=== PATIENT | male | born 1980 | race Caucasian/White ===

== ENCOUNTER 2017-06-21 16:55 | Emergency (ER) | payer SELFPAY ==
[~2017-06-21] VITALS: Ht 175.3 cm; Wt 91.0 kg
[2017-06-21] MEDS ORDERED: ALBU18HF2 IH (17:11)
[2017-06-21] MEDS ORDERED: ALBUTEROL (0.083%) 2.5MG/3ML NEB HHN STA (17:46)
[2017-06-21] MEDS ORDERED: PREDNISONE 20MG TABLET PO STA (17:46)
[2017-06-21] MEDS ORDERED: IPRATROPIUM BROMIDE (0.02%) 0.5MG/2.5ML NEB HHN STA (17:46)
[2017-06-21] MEDS ORDERED: SODIUM CHLORIDE 0.9% 1,000 ML IV ONE (18:00)
[2017-06-21] MEDS ORDERED: IPRATROPIUM BROMIDE (0.02%) 0.5MG/2.5ML NEB ONE (18:26)
[2017-06-21] MEDS ORDERED: ALBUTEROL (0.083%) 2.5MG/3ML NEB ONE (18:26)
[2017-06-21 20:05] VITALS: BP 144/74
== END 2017-06-21 20:28 | disposition home or self-care (01) ==
LOC: ER 19:38
DX: J45.901 Unspecified asthma with (acute) exacerbation (principal); J06.9 Acute upper respiratory infection, unspecified; F17.290 Nicotine dependence, other tobacco product, uncomplicated; Z98.890 Other specified postprocedural states
CPT/HCPCS: 71010; 93005; 94644; 96360; 99285; 99406; J7030; J7512; J7611

== ENCOUNTER 2018-03-04 05:31 | Emergency (ER) | payer SELFPAY ==
[~2018-03-04] VITALS: Ht 175.3 cm; Wt 91.0 kg
[~2018-03-04 05:31] MED LIST: ALBU18HF2 IH
[2018-03-04] MEDS ORDERED: SODIUM CHLORIDE 0.9% 1,000 ML IV ONE (06:35)
[2018-03-04] MEDS ORDERED: ONDANSETRON HCL 4MG/2ML VIAL IV STA (06:35)
[2018-03-04] MEDS ORDERED: KETOROLAC 30MG/ML VIAL IV STA (06:35)
[2018-03-04 07:52] LABS: BASOPHILS % 0.6 % (0.0-2.0); EOSINOPHILS % 1.7 % (0.0-5.0); HEMATOCRIT. 42.7 % (42.0-52.0); LYMPHOCYTES % 21.1 % (20.0-50.0); MEAN CORPUSCULAR HEMOGLOBIN 29.9 pg (28.0-32.0); MEAN CORPUSCULAR VOLUME 85.4 fL (80.0-94.0); MEAN PLATELET VOLUME 8.8 fl (7.4-10.4); MONOCYTES % 9.2 % (2.0-8.0); NEUTROPHILS % 67.4 % (40.0-76.0); PLATELET 208 x1000/uL (130-400); RED BLOOD CELL COUNT 4.99 mill/uL (4.7-6.1); RED CELL DISTRIBUTION WIDTH 13.1 % (11.6-14.6)
[2018-03-04 07:56] LABS: CHLORIDE 107 mEq/L (98-107)
[2018-03-04 08:42] LABS: KETONES URINE NEGATIVE (NEGATIVE); LEUKOCYTE ESTERASE URINE NEGATIVE (NEGATIVE); NITRITE URINE NEGATIVE (NEGATIVE); OCCULT BLOOD URINE NEGATIVE (NEGATIVE); PH URINE 5.5 (4.5-8.0); PROTEIN URINE NEGATIVE (NEGATIVE); SPECIFIC GRAVITY URINE 1.026 (1.005-1.030); UROBILINOGEN URINE 0.2 E.U./dL (0.2-1.0)
[2018-03-04 08:45] LABS: CLARITY URINE CLEAR (CLEAR); COLOR URINE YELLOW (YELLOW)
[2018-03-04] MEDS ORDERED: CEFTRIAXONE 1 G PREMIX 50 ML IV ONE (10:30)
[2018-03-04] MEDS ORDERED: IOHEXOL-300 100 ML BOTTLE ONE (11:38)
[2018-03-04 12:02] VITALS: BP 140/88
== END 2018-03-04 12:05 | disposition home or self-care (01) ==
LOC: ER 05:31
DX: N12 Tubulo-interstitial nephritis, not specified as acute or chronic (principal); R10.9 Unspecified abdominal pain; J45.909 Unspecified asthma, uncomplicated; F17.200 Nicotine dependence, unspecified, uncomplicated; K76.0 Fatty (change of) liver, not elsewhere classified
CPT/HCPCS: 36415; 74177; 76770; 80053; 81003; 83690; 85025; 87086; 96365; 96375; 99285; J0696; J1885; J2405; J7030; Q9967

== ENCOUNTER 2018-03-09 08:14 | Inpatient (IN) | payer SELFPAY ==
[~2018-03-09] VITALS: Ht 175.3 cm; Wt 90.7 kg
[2018-03-09] MEDS ORDERED: ONDANSETRON HCL 4MG/2ML VIAL IV STA (08:49)
[2018-03-09] MEDS ORDERED: SODIUM CHLORIDE 0.9% 1,000 ML IV ONE ×2 (08:49→09:13)
[2018-03-09] MEDS ORDERED: KETOROLAC 30MG/ML VIAL IV STA (08:49)
[2018-03-09 09:09] LABS: BASOPHILS % 0.5 % (0.0-2.0); EOSINOPHILS % 1.8 % (0.0-5.0); HEMATOCRIT. 45.1 % (42.0-52.0); HEMOGLOBIN. 15.9 g/dL (14.0-18.0); LYMPHOCYTES % 24.5 % (20.0-50.0); MEAN PLATELET VOLUME 8.8 fl (7.4-10.4); NEUTROPHILS % 65.2 % (40.0-76.0); PLATELET 226 x1000/uL (130-400); RED CELL DISTRIBUTION WIDTH 13.5 % (11.6-14.6)
[2018-03-09 09:15] LABS: CHLORIDE 103 mEq/L (98-107)
[2018-03-09 09:21] LABS: CLARITY URINE CLEAR (CLEAR); COLOR URINE YELLOW (YELLOW); KETONES URINE NEGATIVE (NEGATIVE); LEUKOCYTE ESTERASE URINE NEGATIVE (NEGATIVE); NITRITE URINE NEGATIVE (NEGATIVE); OCCULT BLOOD URINE NEGATIVE (NEGATIVE); PROTEIN URINE NEGATIVE (NEGATIVE); SPECIFIC GRAVITY URINE 1.016 (1.005-1.030); UROBILINOGEN URINE 0.2 E.U./dL (0.2-1.0)
[2018-03-09] MEDS ORDERED: MORPHINE SULFATE 4 MG/ML CPJ (NOT FOR IM USE) IV STA ×2 (09:38→10:30)
[2018-03-09 09:54] LABS: *AMPHETAMINES SCREEN URINE NEGATIVE (NEGATIVE); *BARBITURATES SCREEN URINE NEGATIVE (NEGATIVE)
[2018-03-09 09:56] LABS: *BENZODIAZEPINES SCREEN URINE NEGATIVE (NEGATIVE); *COCAINE SCREEN URINE NEGATIVE (NEGATIVE); CANNABINOID URINE SCREEN NEGATIVE (NEGATIVE); OPIATES URINE SCREEN PRESUMTIVE POSITIVE (NEGATIVE); PHENCYCLIDINE URINE SCREEN NEGATIVE (NEGATIVE)
[2018-03-09 10:01] LABS: METHADONE URINE SCREEN NEGATIVE (NEGATIVE)
[2018-03-09] MEDS ORDERED: PIPERACILLIN/TAZ 3.375G PREMIX 50 ML IV ONE (10:45)
[2018-03-09] MEDS ORDERED: LEVOFLOXACIN 750MG PREMIX 150 ML IV ONE (10:45)
[2018-03-09] MEDS ORDERED: SODIUM CHLORIDE 0.9% 1,000 ML IV SCH (11:41)
[2018-03-09] MEDS ORDERED: IOHEXOL-300 100 ML BOTTLE ONE (11:43)
[2018-03-09] MEDS ORDERED: IBUPROFEN 600MG TABLET PO PRN (11:45)
[2018-03-09] MEDS ORDERED: DIPHENHYDRAMINE 50MG/ML VIAL IV PRN (14:00)
[2018-03-09] MEDS ORDERED: GUAIFENESIN 200MG/10ML SUGAR FREE UDC PO PRN (14:00)
[2018-03-09] MEDS ORDERED: CLONIDINE 0.1MG TABLET PO PRN (14:00)
[2018-03-09] MEDS ORDERED: NA PHOS,M-B/NA PHOS,DI-BA ENEMA 118ML PR PRN (14:00)
[2018-03-09] MEDS ORDERED: DOCUSATE SODIUM 100MG CAPSULE PO PRN (14:00)
[2018-03-09] MEDS ORDERED: MAGNESIUM/ALUMINUM HYDROXIDE/SIMETHICONE 30ML UDC PO PRN (14:00)
[2018-03-09] MEDS ORDERED: IPRATROPIUM/ALBUTEROL 0.5-3(2.5)MG/3ML NEB INH PRN (14:00)
[2018-03-09] MEDS ORDERED: ACETAMINOPHEN 325MG TABLET PO PRN (14:00)
[2018-03-09] MEDS ORDERED: ONDANSETRON HCL 4MG/2ML VIAL IV PRN (14:00)
[2018-03-09] MEDS ORDERED: NAPR-681 MT (16:37)
[2018-03-09] MEDS ORDERED: SULF1TAB48 MT (16:37)
[2018-03-09 16:49] VITALS: BP 130/79
[2018-03-09] MEDS: ENOXAPARIN 40MG/0.4ML SYR SUBCUT SCH (18:00)
[2018-03-09] MEDS: MORPHINE SULFATE 4 MG/ML CPJ (NOT FOR IM USE) IV PRN ×2 (18:21→22:26)
[2018-03-09 20:00] VITALS: BP 144/84
[2018-03-09] MEDS: PIPERACILLIN/TAZ 3.375G PREMIX 50 ML IV SCH (21:26)
[2018-03-09] MEDS: SODIUM CHLORIDE 0.45% 1,000 ML IV SCH (21:26)
[2018-03-09] MEDS: LORAZEPAM 2MG/ML CPJ IV PRN (21:27)
[2018-03-09 23:27] LABS: CHLORIDE 102 mEq/L (98-107)
[2018-03-10] VITALS (7 sets, daily range): BP systolic 131–163; BP diastolic 84–96
[2018-03-10] MEDS: HYDROCODONE/ACETAMINOPHEN 10/325MG TABLET PO PRN ×6 (00:14→20:03)
[2018-03-10] MEDS: LORAZEPAM 2MG/ML CPJ IV PRN (01:35)
[2018-03-10] MEDS: PIPERACILLIN/TAZ 3.375G PREMIX 50 ML IV SCH ×3 (03:25→21:31)
[2018-03-10] MEDS: MORPHINE SULFATE 4 MG/ML CPJ (NOT FOR IM USE) IV PRN ×5 (03:33→23:35)
[2018-03-10 07:21] LABS: CHLORIDE 100 mEq/L (98-107)
[2018-03-10 07:32] LABS: LDL CHOLESTEROL 95 mg/dL (5-100)
[2018-03-10 07:33] LABS: BASOPHILS % 0.3 % (0.0-2.0); EOSINOPHILS % 1.8 % (0.0-5.0); HEMOGLOBIN. 13.9 g/dL (14.0-18.0); MEAN CORPUSCULAR HEMOGLOBIN 29.8 pg (28.0-32.0); MEAN PLATELET VOLUME 9.2 fl (7.4-10.4); MONOCYTES % 9.7 % (2.0-8.0); NEUTROPHILS % 54.2 % (40.0-76.0); PLATELET 206 x1000/uL (130-400); RED BLOOD CELL COUNT 4.66 mill/uL (4.7-6.1); RED CELL DISTRIBUTION WIDTH 13.1 % (11.6-14.6)
[2018-03-10 07:34] LABS: HDL CHOLESTEROL 31 mg/dL (40-59)
[2018-03-10] MEDS: SODIUM CHLORIDE 0.45% 1,000 ML IV SCH (10:51)
[2018-03-10] MEDS: ENOXAPARIN 40MG/0.4ML SYR SUBCUT SCH (17:48)
[2018-03-11] VITALS: BP 143/92
[2018-03-11 04:00] VITALS: BP 181/103
[2018-03-11] MEDS: HYDROCODONE/ACETAMINOPHEN 10/325MG TABLET PO PRN ×2 (04:30→11:40)
[2018-03-11] MEDS: PIPERACILLIN/TAZ 3.375G PREMIX 50 ML IV SCH (06:19)
[2018-03-11 08:00] VITALS: BP 144/101
[2018-03-11 12:00] VITALS: BP 144/94
== END 2018-03-11 14:20 | disposition home or self-care (01) | DRG 463 ==
LOC: ER 08:46 → 6EST 11:43 → ENRESERV 14:56
PROVIDERS: ADMIT Internal Medicine; ATTEND Internal Medicine
DX: N12 Tubulo-interstitial nephritis, not specified as acute or chronic (principal); R65.10 Systemic inflammatory response syndrome (SIRS) of non-infectious origin without acute organ dysfunction; E86.0 Dehydration; F17.200 Nicotine dependence, unspecified, uncomplicated; J45.909 Unspecified asthma, uncomplicated
CPT/HCPCS: 36415; 74177; 80048; 80053; 80061; 80305; 81003; 83690; 85025; 85610; 85730; 87040; 93005; 96365; 96368; 96375; 96376; 99285; G0482; J1650; J1885; J1956; J2060; J2270; J2405; J2543; J7030; Q9967